=== PATIENT | male | born 1960 | race Caucasian/White ===

== ENCOUNTER 2018-12-26 15:30 | Emergency (ER) | payer OTHER ==
[~2018-12-26] VITALS: Ht 182.9 cm; Wt 111.1 kg
--- NOTE | 2018-12-26 16:06 | PHYS DOC ---
Past Medical History Past Medical History: Kidney Stone, Other Adult General Chief Complaint Chief Complaint: GROIN PAIN HPI HPI Patient is a 58 year old male who presented to ER today for evaluation of left-sided abdominal pain started last night, become more severe about an hour ago causing the nausea and vomiting. Patient denies any fever, no diarrhea, no blood in his stool, no bloody urination. Patient felt like he is constipated however he had a bowel movement last night. he also could not urinate much today. he has history of kidney stone the past, he said the pain today is SLIGHTLY different BECAUSE IT LASTED LONGER. Review of Systems Review of Systems Constitutional: Denies fever or chills [] Eyes: Denies change in visual acuity, redness, or eye pain [] HENT: Denies nasal congestion or sore throat [] Respiratory: Denies cough or shortness of breath [] Cardiovascular: No additional information not addressed in HPI [] GI: Positive for abdominal pain, nausea, vomiting, NO bloody stools or diarrhea [] : Denies dysuria or hematuria [] Musculoskeletal: Denies back pain or joint pain [] Integument: Denies rash or skin lesions [] Neurologic: Denies headache, focal weakness or sensory changes [] Endocrine: Denies polyuria or polydipsia [] All other systems were reviewed and found to be within normal limits, except as documented in this note. Current Medications Current Medications Current Medications Medications (Trade) Dose Ordered Sig/Erin Start Time Stop Time Status Last Admin Dose Admin Ketorolac Tromethamine (Toradol 30mg Vial) 30 mg 1X ONCE 12/26/18 17:15 12/26/18 17:18 DC Morphine Sulfate (Morphine Sulfate) 4 mg 1X ONCE 12/26/18 16:30 12/26/18 16:31 DC 12/26/18 16:25 4 MG Ondansetron HCl (Zofran) 8 mg 1X ONCE 12/26/18 16:30 12/26/18 16:31 DC 12/26/18 16:25 8 MG Sodium Chloride 1,000 ml @ 1,000 mls/hr 1X ONCE 12/26/18 16:30 12/26/18 17:29 DC 12/26/18 16:25 1,000 MLS/HR Tamsulosin HCl (Flomax) 0.4 mg 1X STAT 12/26/18 17:15 12/26/18 17:18 DC Allergies Allergies Allergies Coded Allergies Type Severity Reaction Last Updated Verified No Known Drug Allergies 12/26/18 No Physical Exam Physical Exam Constitutional: Well developed, well nourished, no acute distress, non-toxic appearance. [] HENT: Normocephalic, atraumatic, bilateral external ears normal, oropharynx moist, no oral exudates, nose normal. [] Eyes: PERRLA, EOMI, conjunctiva normal, no discharge. [] Neck: Normal range of motion, no tenderness, supple, no stridor. [] Cardiovascular:Heart rate regular rhythm, no murmur [] Lungs & Thorax: Bilateral breath sounds clear to auscultation [] Abdomen: Bowel sounds normal, soft, THERE IS tenderness TO PALPATION IN LLQ area and left CVA area, no masses, no pulsatile masses. [] Skin: Warm, dry, no erythema, no rash. [] Back: No tenderness, no CVA tenderness. [] Extremities: No tenderness, no cyanosis, no clubbing, ROM intact, no edema. [] Neurologic: Alert and oriented X 3, normal motor function, normal sensory function, no focal deficits noted. [] Psychologic: Affect normal, judgement normal, mood normal. [] Current Patient Data Vital Signs Vital Signs Date Time Temp Pulse Resp B/P (MAP) Pulse Ox O2 Delivery O2 Flow Rate FiO2 12/26/18 15:55 97.8 70 20 173/88 (116) 96 Room Air 97.8 Lab Values Laboratory Tests Test 12/26/18 16:25 12/26/18 17:10 White Blood Count 7.9 x10^3/uL (4.0-11.0) Red Blood Count 4.54 x10^6/uL (4.30-5.70) Hemoglobin 14.3 g/dL (13.0-17.5) Hematocrit 40.7 % (39.0-53.0) Mean Corpuscular Volume 90 fL (79-100) Mean Corpuscular Hemoglobin 32 pg (25-35) Mean Corpuscular Hemoglobin Concent 35 g/dL (31-37) Red Cell Distribution Width 13.1 % (11.5-14.5) Platelet Count 262 x10^3/uL (140-400) Neutrophils (%) (Auto) 72 % (31-73) Lymphocytes (%) (Auto) 17 % (24-48) L Monocytes (%) (Auto) 8 % (0-9) Eosinophils (%) (Auto) 3 % (0-3) Basophils (%) (Auto) 1 % (0-3) Neutrophils # (Auto) 5.7 x10^3/uL (1.8-7.7) Lymphocytes # (Auto) 1.4 x10^3/uL (1.0-4.8) Monocytes # (Auto) 0.6 x10^3/uL (0.0-1.1) Eosinophils # (Auto) 0.2 x10^3/uL (0.0-0.7) Basophils # (Auto) 0.1 x10^3/uL (0.0-0.2) Sodium Level 141 mmol/L (136-145) Potassium Level 3.5 mmol/L (3.5-5.1) Chloride Level 105 mmol/L (98-107) Carbon Dioxide Level 26 mmol/L (21-32) Anion Gap 10 (6-14) Blood Urea Nitrogen 19 mg/dL (8-26) Creatinine 1.5 mg/dL (0.7-1.3) H Estimated GFR (Cockcroft-Gault) 48.2 BUN/Creatinine Ratio 13 (6-20) Glucose Level 121 mg/dL (70-99) H Calcium Level 8.7 mg/dL (8.5-10.1) Total Bilirubin 0.3 mg/dL (0.2-1.0) Aspartate Amino Transferase (AST) 17 U/L (15-37) Alanine Aminotransferase (ALT) 39 U/L (16-63) Alkaline Phosphatase 73 U/L (46-116) Total Protein 7.0 g/dL (6.4-8.2) Albumin 3.8 g/dL (3.4-5.0) Albumin/Globulin Ratio 1.2 (1.0-1.7) Lipase 178 U/L (73-393) Urine Collection Type Void Urine Color Distant Urine Clarity Clear Urine pH Urine Specific [place] Urine Protein mg/dL (NEG-TRACE) Urine Glucose (UA) mg/dL (NEG) Urine Ketones (Stick) mg/dL (NEG) Urine Blood (NEG) Urine Nitrite (NEG) Urine Bilirubin (NEG) Urine Urobilinogen Dipstick mg/dL (0.2 mg/dL) Urine Leukocyte Esterase (NEG) Urine RBC 3-5 /HPF (0-2) Urine WBC Rare /HPF (0-4) Urine Squamous Epithelial Cells Occ /LPF Urine Bacteria 0 /HPF (0-FEW) Urine Mucus Marked /LPF Laboratory Tests 12/26/18 16:25 Laboratory Tests 12/26/18 16:25 EKG EKG [] Radiology/Procedures Radiology/Procedures [][facility] [address] [place] [address] IMAGING REPORT Signed PATIENT: PLACIDO LE ACCOUNT: [id number] : 1960 LOCATION: ER AGE: 58 SEX: M EXAM STATUS: REG ER ORD. PHYSICIAN: GAVINO SMART DO REASON: LEFT FLANK PAIN, LEFT GROIN PAIN PROCEDURE: CT ABDOMEN PELVIS WO CONTRAST CT abdomen and pelvis without contrast HISTORY: Left flank pain, left groin pain CT scan of the abdomen and pelvis was done without contrast. Lung bases are clear. There is no pleural effusion. Liver is normal in appearance. There is no calcified gallstone. Spleen and adrenal glands are normal. Pancreas is normal. There is no mass or hydronephrosis in the kidneys. There is a 3 mm calculus at the left ureterovesical junction with mild left hydronephrosis. There is no intrarenal calculus in either kidney. There is no renal mass. There is no adenopathy. There is no bowel obstruction. Appendix is normal. Patient's had previous surgery at the right groin. IMPRESSION: 1. 3 mm calculus at the left ureterovesical junction with mild left hydronephrosis. PQRS Compliance Statement: One or more of the following individualized dose reduction techniques were utilized for this examination: 1. Automated exposure control 2. Adjustment of the mA and/or kV according to patient size 3. Use of iterative reconstruction technique Electronically signed by: Dinesh Romero MD (12/26/2018 4:51 PM) [facility] DICTATED and SIGNED BY: DINESH ROMERO MD DATE: 12/26/18 2464 Course & Med Decision Making Course & Med Decision Making Pertinent Labs and Imaging studies reviewed. (See chart for details) Patient was given medication in the ER, felt much better. He was found to have a small kidney stone, will discharge him home with strainer, follow up with urologist, pain medication. Camille Disclaimer Camille Disclaimer This electronic medical record was generated, in whole or in part, using a voice recognition dictation system. Departure Departure Impression: Primary Impression: Kidney stone on left side Disposition: HOME, SELF-CARE Condition: STABLE Referrals: BLANK RICHARDSON MD please call this urologist for follow up next week. Patient Instructions: Diet for Kidney Stones, Kidney Stones, Urine Strainer Scripts Tamsulosin Hcl (FLOMAX) 0.4 Mg Cap.er.24h 0.4 MG PO DAILY for 10 Days, #10 TAB Prov: GAVINO SMART DO 12/26/18 Hydrocodone/Apap 5-325 (NORCO 5-325 TABLET) 1 Each Tablet 1 TAB PO PRN Q6HRS PRN for PAIN, #15 TAB 0 Refills Prov: GAVINO SMART DO 12/26/18 Ibuprofen (Ibuprofen) 800 Mg Tablet 800 MG PO TID PRN for PAIN, #30 TAB Prov: GAVINO SAMRT DO 12/26/18 GAVINO SMART DO Dec 26, 2018 16:06
[2018-12-26] MEDS ORDERED: ONDANSETRON PF 4 MG/2 ML VIAL. IV ONE (16:30)
[2018-12-26] MEDS ORDERED: IV NORMAL SALINE 1000ML BAG 1,000 ML IV ONE (16:30)
[2018-12-26] MEDS ORDERED: MORPHINE SULFATE 4 MG/ML VIAL. IV ONE (16:30)
[2018-12-26 16:38] LABS: BASO # 0.1 x10^3/uL (0.0-0.2); BASO % 1 % (0-3); EOS # 0.2 x10^3/uL (0.0-0.7); EOS % 3 % (0-3); HEMATOCRIT 40.7 % (39.0-53.0); HEMOGLOBIN 14.3 g/dL (13.0-17.5); LYMPH # 1.4 x10^3/uL (1.0-4.8); LYMPH % 17 % (24-48); MEAN CORPUSCULAR HEMOGLOBIN 32 pg (25-35); MEAN CORPUSCULAR HGB CONC 35 g/dL (31-37); MEAN CORPUSCULAR VOLUME 90 fL (79-100); MONO # 0.6 x10^3/uL (0.0-1.1); MONO % 8 % (0-9); NEUT # 5.7 x10^3/uL (1.8-7.7); NEUT % 72 % (31-73); PLATELET COUNT 262 x10^3/uL (140-400); RED BLOOD COUNT 4.54 x10^6/uL (4.30-5.70); RED CELL DISTRIBUTION WIDTH 13.1 % (11.5-14.5); WHITE BLOOD COUNT 7.9 x10^3/uL (4.0-11.0)
[2018-12-26 16:48] LABS: CALCIUM 8.7 mg/dL (8.5-10.1); CREATININE 1.5 mg/dL (0.7-1.3); GFR 48.2; POTASSIUM 3.5 mmol/L (3.5-5.1)
[2018-12-26 16:54] LABS: ALBUMIN 3.8 g/dL (3.4-5.0); ALBUMIN/GLOBULIN RATIO 1.2 (1.0-1.7); TOTAL BILIRUBIN 0.3 mg/dL (0.2-1.0)
--- NOTE | 2018-12-26 16:54 | RAD ---
CT abdomen and pelvis without contrast HISTORY: Left flank pain, left groin pain CT scan of the abdomen and pelvis was done without contrast. Lung bases are clear. There is no pleural effusion. Liver is normal in appearance. There is no calcified gallstone. Spleen and adrenal glands are normal. Pancreas is normal. There is no mass or hydronephrosis in the kidneys. There is a 3 mm calculus at the left ureterovesical junction with mild left hydronephrosis. There is no intrarenal calculus in either kidney. There is no renal mass. There is no adenopathy. There is no bowel obstruction. Appendix is normal. Patient's had previous surgery at the right groin. IMPRESSION: 1. 3 mm calculus at the left ureterovesical junction with mild left hydronephrosis. PQRS Compliance Statement: One or more of the following individualized dose reduction techniques were utilized for this examination: 1. Automated exposure control 2. Adjustment of the mA and/or kV according to patient size 3. Use of iterative reconstruction technique Electronically signed by: Dinesh Romero MD (12/26/2018 4:51 PM) [facility]
[2018-12-26] MEDS ORDERED: KETOROLAC 30 MG/ML VIAL. IV ONE (17:15)
[2018-12-26] MEDS ORDERED: TAMSULOSIN 0.4 MG CAP.ER.24H. PO STA (17:15)
[2018-12-26 17:19] LABS: CLARITY,URINE CLEAR
[2018-12-26 17:26] LABS: COLOR,URINE ORANGE
[2018-12-26 17:29] LABS: BACTERIA,URINE 0 /HPF (0-FEW); SQUAMOUS EPITHELIAL CELL,UR OCC /LPF; WBC,URINE RARE /HPF (0-4)
[2018-12-26 17:55] VITALS: BP 142/78
[2018-12-26] MEDS ORDERED: HYDR-3164 PO (17:55)
[2018-12-26] MEDS ORDERED: TAMS0.4C97 PO (17:55)
[2018-12-26] MEDS ORDERED: IBUP800T19 PO (17:55)
== END 2018-12-26 18:13 | disposition home or self-care (01) ==
LOC: ER 15:30
DX: N13.2 Hydronephrosis with renal and ureteral calculous obstruction (principal); R11.2 Nausea with vomiting, unspecified
CPT/HCPCS: 36415; 74176; 80053; 81001; 83690; 85025; 96361; 96374; 96375; 99285; J1885; J2270; J2405; J7030